=== PATIENT | female | born 1945 | race Caucasian/White ===

== ENCOUNTER 2020-07-13 14:00 | Outpatient (RCR) | payer MEDICARE, MEDICAID | END 2020-07-13 14:30 | disposition home or self-care (01) | LOC: CARDREHAB 14:00 | DX: Z48.812 Encounter for surgical aftercare following surgery on the circulatory system (principal); I25.2 Old myocardial infarction ==

== ENCOUNTER 2020-08-30 14:00 | Outpatient (RCR) | payer MEDICARE, MEDICAID | END 2020-10-18 | disposition home or self-care (01) | LOC: CARDREHAB | DX: I25.2 Old myocardial infarction (principal) ==

== ENCOUNTER → 2023-10-22 | Outpatient (CLI) | payer MEDICARE, MEDICAID ==
[~2023-10-22] VITALS: Ht 154.9 cm; Wt 78.7 kg
[2023-10-22 14:06] VITALS: BP 174/55
[2023-10-22 15:24] VITALS: BP 158/84
== END ==
LOC: AMSURD 13:52
DX: C43.52 Malignant melanoma of skin of breast (principal)
CPT/HCPCS: J7030

== ENCOUNTER → 2024-06-13 | Outpatient (CLI) | payer MEDICARE, MEDICAID ==
[~2024-06-13] MED LIST: ALDACTONE 25MG25 MG PO; ATIVAN0.5 MG PO; B-121000 MCG PO; CLARITIN10 M1 PO; COLACE100 M1 PO; FOLIC ACID1 MG PO; FUROSEMIDE20 MG PO; GOOD SENSE ASPI81 M1 PO; MECLIZINE PO; METOPROLOL SUCC25 M1 PO; NATURE'S BLEND1 TA6 PO; NITROSTAT0.4 M1 SL
== END ==
LOC: MAMMO 13:00
DX: Z12.31 Encounter for screening mammogram for malignant neoplasm of breast (principal); C43.52 Malignant melanoma of skin of breast; Z90.12 Acquired absence of left breast and nipple